=== PATIENT | female | born 1955 | race Two or more races ===

== ENCOUNTER 2023-08-16 17:07 | Emergency (ER) | payer OTHER ==
[~2023-08-16] VITALS: Ht 165.1 cm; Wt 86.2 kg
[2023-08-16] MEDS ORDERED: AMBIEN5 MG PO (17:11)
[2023-08-16] MEDS ORDERED: OSEL75CA PO (17:11)
[2023-08-16] MEDS ORDERED: BUSPIRONE HCL5 MG PO (17:12)
[2023-08-16] MEDS ORDERED: OMEPRAZOLE MAGN20 MG (17:12)
[2023-08-16] MEDS ORDERED: CLONAZEPAM0.5 MG PO (17:12)
[2023-08-16] MEDS ORDERED: HYDROCODONE/CHLORPHEN P-STIREX 5 ML ML PO STA (18:35)
== END 2023-08-16 18:49 | disposition home or self-care (01) ==
LOC: ER 17:08
DX: J06.9 Acute upper respiratory infection, unspecified (principal); Z88.0 Allergy status to penicillin

== ENCOUNTER 2023-12-27 09:29 | Inpatient (IN) | payer OTHER ==
[~2023-12-27] VITALS: Ht 165.1 cm; Wt 83.5 kg
[~2023-12-27 09:29] MED LIST: AMBIEN5 MG PO; BUSPIRONE HCL5 MG PO; CLONAZEPAM0.5 MG PO; OMEPRAZOLE MAGN20 MG; OSEL75CA PO
[2023-12-27 10:57] LABS: HEMATOCRIT 40.2 % (36.0-45.00); HEMOGLOBIN 13.6 g/dL (12.0-15.00); MEAN CELL VOLUME 82.6 fL (80.00-100.00); MEAN CORPUSCULAR HGB CONC 33.9 g/dl (32.0-36.0); PLATELET COUNT 257 K/uL (150-450); RED BLOOD COUNT 4.87 M/uL (4.00-6.00); RED CELL DISTRIBUTION WIDTH 13.1 % (11.5-14.5)
[2023-12-27 11:43] LABS: URINE APPEARANCE Clear; URINE BILIRRUBIN Negative (NEGATIVE); URINE BLOOD Small; URINE COLOR Yellow; URINE GLUCOSE Negative (NEGATIVE); URINE KETONE Trace (NEGATIVE); URINE LEUKOCYTE Negative; URINE NITRATE Negative; URINE PROTEIN Negative (NEGATIVE); URINE UROBILINOGEN 0.2 E.U./dl
[2023-12-27 11:44] LABS: URINE BACTERIA 673.9 uL (0.0-1933); URINE EPITHELIAL CELLS 42.9 uL (0.0-38.8); URINE RBC 11.6 uL (0.0-20.8)
[2023-12-27 11:55] LABS: CALCIUM 9.5 mg/dL (8.5-10.1); CREATININE SERUM 0.97 mg/dL (0.55-1.02); GFR 57.46; POTASSIUM 3.95 mEq/L (3.5-5.1)
[2023-12-27] MEDS ORDERED: METRONIDAZOLE/SODIUM CHLORIDE 500 MG/100 ML PIGGYBACK IV STA (13:56)
[2023-12-27] MEDS ORDERED: CIPROFLOXACIN IN 5 % DEXTROSE 400 MG/200 ML PIGGYBAG IV STA (13:56)
[2023-12-27] MEDS ORDERED: TRAMADOL HCL 50 MG TABLET PO STA (14:06)
[2023-12-27] MEDS ORDERED: CIPROFLOXACIN IN 5 % DEXTROSE 400 MG/200 ML PIGGYBAG IV ONE (14:11)
[2023-12-27] MEDS ORDERED: METRONIDAZOLE/SODIUM CHLORIDE 500 MG/100 ML PIGGYBACK IV ONE (14:12)
[2023-12-27] MEDS ORDERED: MORPHINE SULFATE 4 MG/ML CARTRIDGE IV PRN (19:45)
[2023-12-27] MEDS ORDERED: 0.9 % SODIUM CHLORIDE 1,000 ML IV SCH (19:45)
[2023-12-27] MEDS ORDERED: ONDANSETRON HCL 4 MG in 0.9 % SODIUM CHLORIDE 50 ML IV PRN (19:45)
[2023-12-27] MEDS ORDERED: ACETAMINOPHEN 500 MG GEL..CAP PO PRN (19:45)
[2023-12-27] MEDS ORDERED: KETOROLAC TROMETHAMINE 30 MG VIAL ONE (20:15)
[2023-12-27] MEDS ORDERED: KETOROLAC TROMETHAMINE 15 MG VIAL IU SCH (21:00)
[2023-12-27] MEDS ORDERED: ZOLPIDEM TARTRATE 10 MG TABLET PO SCH (21:00)
[2023-12-27] MEDS ORDERED: CLONAZEPAM 0.5 MG TABLET PO SCH (21:00)
[2023-12-27] MEDS ORDERED: CIPROFLOXACIN IN 5 % DEXTROSE 200 ML IV SCH (21:00)
[2023-12-27 21:23] LABS: INR 1.05; PARTIAL THROMBOPLASTIN TIME 31.1 SECONDS (22.0-34.0); PROTHROMBIN TIME 11.4 SECONDS (9.0-11.5)
[2023-12-28] MEDS ORDERED: METRONIDAZOLE/SODIUM CHLORIDE 100 ML IV SCH (01:00)
[2023-12-28] MEDS ORDERED: METRONIDAZOLE/SODIUM CHLORIDE 500 MG/100 ML PIGGYBACK IV ONE ×2 (01:19→07:33)
[2023-12-28] MEDS ORDERED: KETOROLAC TROMETHAMINE 30 MG VIAL ONE (05:44)
[2023-12-28] MEDS ORDERED: FAMOTIDINE/PF 20 MG/2 ML VIAL ONE (07:33)
[2023-12-28] MEDS ORDERED: CIPROFLOXACIN IN 5 % DEXTROSE 400 MG/200 ML PIGGYBAG IV ONE (07:33)
[2023-12-28] MEDS ORDERED: BUSPIRONE HCL 15 MG TABLET PO SCH ×2 (09:00→21:00)
[2023-12-28] MEDS ORDERED: FAMOTIDINE/PF 20 MG in 0.9 % SODIUM CHLORIDE 8 ML IV PUSH SCH (09:00)
[2023-12-28] MEDS ORDERED: CLONAZEPAM 0.5 MG TABLET PO SCH ×2 (09:00→19:45)
[2023-12-29 06:14] LABS: HEMATOCRIT 34.7 % (36.0-45.00); HEMOGLOBIN 11.8 g/dL (12.0-15.00); MEAN CELL VOLUME 83.7 fL (80.00-100.00); MEAN CORPUSCULAR HEMOGLOBIN 28.4 pg (27.00-32.0); MEAN CORPUSCULAR HGB CONC 33.9 g/dl (32.0-36.0); PLATELET COUNT 220 K/uL (150-450); RED BLOOD COUNT 4.15 M/uL (4.00-6.00); RED CELL DISTRIBUTION WIDTH 12.9 % (11.5-14.5)
[2023-12-29 06:56] LABS: ALBUMIN 3.1 gm/dL (3.4-5.0); BILIRUBIN TOTAL 0.33 mg/dL (0.3-1.2); CREATININE SERUM 0.68 mg/dL (0.55-1.02); GFR 86.57; GLOBULINA 2.9 G/DL (2.4-3.5); MAGNESIUM 2.2 mg/dL (1.8-2.4); PHOSPHOROUS 3.9 mg/dL (2.5-4.9); POTASSIUM 4.13 mEq/L (3.5-5.1)
[2023-12-29 06:57] LABS: C-REACTIVE PROTEIN 11.1 MG/DL (0.00-0.29)
[2023-12-29] MEDS ORDERED: FAMOTIDINE/PF 20 MG/2 ML VIAL ONE (08:19)
[2023-12-29] MEDS ORDERED: BUSPIRONE HCL 15 MG TABLET PO SCH (09:00)
[2023-12-29 12:35] LABS: PH,URINE 5.5 (5.0-8.0); URINE APPEARANCE Clear; URINE BILIRRUBIN Negative (NEGATIVE); URINE BLOOD Negative; URINE COLOR Yellow; URINE GLUCOSE Negative (NEGATIVE); URINE KETONE Negative (NEGATIVE); URINE LEUKOCYTE Trace; URINE NITRATE Negative; URINE PROTEIN Negative (NEGATIVE)
[2023-12-29 12:39] LABS: URINE BACTERIA 88.1 uL (0.0-1933); URINE EPITHELIAL CELLS 49.1 uL (0.0-38.8); URINE RBC 15.8 uL (0.0-20.8); URINE WBC 10.9 uL (0.0-23.2)
[2023-12-30] MEDS ORDERED: FAMOTIDINE/PF 20 MG/2 ML VIAL ONE (07:10)
[2023-12-30] MEDS ORDERED: LACTOBACILLUS ACIDOPHILUS 1 CAP CAP PO SCH (17:00)
[2023-12-31 07:56] LABS: HEMOGLOBIN 12.2 g/dL (12.0-15.00); MEAN CORPUSCULAR HEMOGLOBIN 28.8 pg (27.00-32.0); MEAN CORPUSCULAR HGB CONC 33.9 g/dl (32.0-36.0); PLATELET COUNT 248 K/uL (150-450); RED BLOOD COUNT 4.24 M/uL (4.00-6.00); RED CELL DISTRIBUTION WIDTH 12.9 % (11.5-14.5)
[2023-12-31 08:35] LABS: ALBUMIN 3.2 gm/dL (3.4-5.0); BILIRUBIN TOTAL 0.43 mg/dL (0.3-1.2); CALCIUM 8.2 mg/dL (8.5-10.1); CREATININE SERUM 0.8 mg/dL (0.55-1.02); GFR 71.76; POTASSIUM 4.27 mEq/L (3.5-5.1); TOTAL PROTEIN 6.2 gm/dL (6.4-8.2)
[2024-01-01] MEDS ORDERED: INTESTINEX680 M1 PO (15:07)
[2024-01-01] MEDS ORDERED: CIPRO500 MG PO (15:08)
[2024-01-01] MEDS ORDERED: METRONIDAZOLE500 MG PO (15:09)
== END 2024-01-01 18:13 | disposition home or self-care (01) | DRG 392 ==
LOC: ER 09:30 → SEC-K 19:52 → MEDJ 19:52 → O/R 12-28 08:42 → SEC-K 12-28 08:43 → MEDJ 12-28 10:54
PROVIDERS: General Practice; Internal Medicine; Internal Medicine Infectious Disease; ADMIT Internal Medicine; ATTEND Internal Medicine
PROC: BW21YZZ Computerized Tomography (CT Scan) of Abdomen and Pelvis using Other Contrast (ICD-10-PCS; principal; 2023-12-27)
DX: K57.32 Diverticulitis of large intestine without perforation or abscess without bleeding (principal); R65.10 Systemic inflammatory response syndrome (SIRS) of non-infectious origin without acute organ dysfunction